=== PATIENT | female | born 1945 | race Asian ===

== ENCOUNTER 2023-04-19 17:39 | Inpatient (IN) | payer OTHER, MEDICAID ==
[~2023-04-19] VITALS: Ht 157.5 cm; Wt 59.0 kg
[~2023-04-19 17:39] MED LIST: CARB1TAB40 PO; CEPH-588 PO; DONE10TA10 PO; ROSU10TA1 PO; TEMA15CA24 PO; [UNRECOGNIZED DRUG - CODE] PO
[2023-04-19 17:42] VITALS: BP 110/61; PULSE 91; RESP 18; TEMP 96.9; O2SAT 96
[2023-04-19 20:09] LABS: BASOPHILS % (AUTO) 0.3 % (0.0-2.0); EOSINOPHILS % (AUTO) 0.2 % (0.0-4.0); HEMOGLOBIN 12.4 g/dL (12.0-16.0); LYMPHOCYTES % (AUTO) 10.9 % (20.5-51.1); MEAN CORPUSCULAR HEMOGLOBIN 32 pg (27-31); MEAN CORPUSCULAR HGB CONC 34 g/dL (33-37); MEAN CORPUSCULAR VOLUME 94.8 fL (80-94); MONOCYTES # (AUTO) 0.5 K/uL (0.8-1.0); MONOCYTES % (AUTO) 5.3 % (1.7-9.3); NEUTROPHILS # (AUTO) 7.8 K/uL (1.8-7.7); NEUTROPHILS % (AUTO) 83.3 % (42.2-75.2); PLATELET COUNT (AUTO) 225 K/uL (140-450); RED CELL DISTRIBUTION WIDTH 14.5 % (11.6-13.7); WHITE BLOOD COUNT (AUTO) 9.4 K/uL (4.8-10.8)
[2023-04-19 20:23] VITALS: O2SAT 99
[2023-04-19 20:25] LABS: ALANINE AMINOTRANSFERASE 15 U/L (12-78); ALBUMIN 3.4 g/dL (3.4-5.0); ALKALINE PHOSPHATASE 82 U/L (50-136); ANION GAP 9.7 (8-16); ASPARTATE AMINOTRANSFERASE 36 U/L (15-37); CALCIUM 8.3 mg/dL (8.5-10.1); CHLORIDE 101 mmol/L (98-107); CREATININE 0.6 mg/dL (0.6-1.3); GLUCOSE 83 mg/dL (74-106); POTASSIUM 3.7 mmol/L (3.5-5.1); SODIUM SERUM 138 mmol/L (136-145); TOTAL BILIRUBIN 0.6 mg/dL (0.0-1.0); TOTAL PROTEIN, SERUM 7.1 g/dL (6.4-8.2); UREA NITROGEN, BLOOD 16 mg/dL (7-18)
[2023-04-19] MEDS ORDERED: ZOLPIDEM 5 MG TAB PO PRN (20:50)
[2023-04-19] MEDS ORDERED: HYDROcodone/APAP 7.5/325 MG 1 TAB PO PRN (20:50)
[2023-04-19] MEDS ORDERED: POTASSIUM CHLORIDE 10 MEQ TABER PO PRN (20:50)
[2023-04-19] MEDS ORDERED: guaiFENesin DM 200/20 MG-10 ML 10 ML UDC PO PRN (20:50)
[2023-04-19] MEDS ORDERED: ONDANSETRON 4 MG/2 ML VIAL IM/IVP PRN (20:50)
[2023-04-19] MEDS ORDERED: ACETAMINOPHEN 325 MG TAB PO PRN (20:50)
[2023-04-19] MEDS ORDERED: DOCUSATE SODIUM 100 MG GELCAP PO PRN (20:50)
[2023-04-19] MEDS: NACL 0.9% 1,000 ML IV SCH (21:12)
[2023-04-19 21:35] LABS: INR 0.94 (0.8-1.2); PARTIAL THROMBOPLASTIN TIME 26.7 secs (22-35.6); PROTHROMBIN TIME 9.9 secs (10.8-13.4)
[2023-04-19 23:10] VITALS: O2SAT 99
[2023-04-20] VITALS (8 sets, daily range): BP systolic 131; BP diastolic 78; PULSE 86–87; RESP 18; TEMP 97.8; O2SAT 97–99
[2023-04-20 06:51] LABS: BASOPHILS % (AUTO) 0.6 % (0.0-2.0); EOSINOPHILS % (AUTO) 0.5 % (0.0-4.0); HEMATOCRIT 36.2 % (36-48); HEMOGLOBIN 12.1 g/dL (12.0-16.0); LYMPHOCYTES # (AUTO) 0.9 K/uL (2.5-16.5); LYMPHOCYTES % (AUTO) 23.6 % (20.5-51.1); MEAN CORPUSCULAR HEMOGLOBIN 32 pg (27-31); MEAN CORPUSCULAR HGB CONC 33 g/dL (33-37); MEAN CORPUSCULAR VOLUME 94.7 fL (80-94); MONOCYTES # (AUTO) 0.2 K/uL (0.8-1.0); MONOCYTES % (AUTO) 6.1 % (1.7-9.3); NEUTROPHILS # (AUTO) 2.7 K/uL (1.8-7.7); NEUTROPHILS % (AUTO) 69.2 % (42.2-75.2); PLATELET COUNT (AUTO) 208 K/uL (140-450); RED BLOOD CELL COUNT(AUTO) 3.83 MIL/uL (4.20-5.40); WHITE BLOOD COUNT (AUTO) 3.9 K/uL (4.8-10.8)
[2023-04-20 07:45] LABS: ALANINE AMINOTRANSFERASE 38 U/L (12-78); ALBUMIN 3.3 g/dL (3.4-5.0); ALKALINE PHOSPHATASE 84 U/L (50-136); ASPARTATE AMINOTRANSFERASE 33 U/L (15-37); CALCIUM 8.1 mg/dL (8.5-10.1); CARBON DIOXIDE 28.1 mmol/L (21-32); CHLORIDE 102 mmol/L (98-107); CREATININE 0.6 mg/dL (0.6-1.3); GLUCOSE 90 mg/dL (74-106); POTASSIUM 4.1 mmol/L (3.5-5.1); SODIUM SERUM 138 mmol/L (136-145); TOTAL BILIRUBIN 0.5 mg/dL (0.0-1.0); TOTAL PROTEIN, SERUM 7.2 g/dL (6.4-8.2); UREA NITROGEN, BLOOD 13 mg/dL (7-18)
[2023-04-20] MEDS: PANTOPRAZOLE 40 MG TABEC PO SCH (09:00)
[2023-04-20] MEDS: NACL 0.9% 1,000 ML IV SCH (12:46)
[2023-04-20] MEDS: DEXT 5% /NACL 0.9% 1,000 ML IV SCH (23:30)
[2023-04-21] VITALS: BP 111/57; PULSE 68; PULSE 75; RESP 18; TEMP 98.5; O2SAT 100
[2023-04-21 01:29] VITALS: PULSE 69
[2023-04-21] MEDS: DEXT 5% /NACL 0.9% 1,000 ML IV SCH ×2 (03:14→15:08)
[2023-04-21 04:00] VITALS: BP 130/69; PULSE 70; RESP 18; TEMP 98.7; O2SAT 100
[2023-04-21] MEDS: NACL 0.9% 1,000 ML IV SCH (06:10)
[2023-04-21 06:42] LABS: BASOPHILS % (AUTO) 0.4 % (0.0-2.0); EOSINOPHILS % (AUTO) 0.4 % (0.0-4.0); HEMATOCRIT 35.7 % (36-48); HEMOGLOBIN 12.1 g/dL (12.0-16.0); LYMPHOCYTES # (AUTO) 0.8 K/uL (2.5-16.5); LYMPHOCYTES % (AUTO) 21.4 % (20.5-51.1); MEAN CORPUSCULAR HEMOGLOBIN 32 pg (27-31); MEAN CORPUSCULAR HGB CONC 34 g/dL (33-37); MEAN CORPUSCULAR VOLUME 94.8 fL (80-94); MONOCYTES # (AUTO) 0.3 K/uL (0.8-1.0); NEUTROPHILS # (AUTO) 2.7 K/uL (1.8-7.7); NEUTROPHILS % (AUTO) 70.8 % (42.2-75.2); PLATELET COUNT (AUTO) 210 K/uL (140-450); RED BLOOD CELL COUNT(AUTO) 3.77 MIL/uL (4.20-5.40); RED CELL DISTRIBUTION WIDTH 14.1 % (11.6-13.7); WHITE BLOOD COUNT (AUTO) 3.9 K/uL (4.8-10.8)
[2023-04-21 06:49] LABS: ALANINE AMINOTRANSFERASE 34 U/L (12-78); ALBUMIN 3.3 g/dL (3.4-5.0); ALKALINE PHOSPHATASE 80 U/L (50-136); ANION GAP 12.6 (8-16); ASPARTATE AMINOTRANSFERASE 25 U/L (15-37); CALCIUM 8.1 mg/dL (8.5-10.1); CARBON DIOXIDE 27.9 mmol/L (21-32); CHLORIDE 102 mmol/L (98-107); CREATININE 0.6 mg/dL (0.6-1.3); GLUCOSE 67 mg/dL (74-106); POTASSIUM 3.5 mmol/L (3.5-5.1); SODIUM SERUM 139 mmol/L (136-145); TOTAL BILIRUBIN 0.5 mg/dL (0.0-1.0); UREA NITROGEN, BLOOD 15 mg/dL (7-18)
[2023-04-21 08:00] VITALS: BP 121/55; PULSE 75; PULSE 81; RESP 19; TEMP 97.7; O2SAT 100
[2023-04-21] MEDS: PANTOPRAZOLE 40 MG TABEC PO SCH (09:00)
[2023-04-21] MEDS ORDERED: fentaNYL citrate 0.05 MG/ML VIAL ONE (14:18)
[2023-04-21] MEDS ORDERED: MIDAZOLAM 2 MG/2 ML VIAL ONE (14:18)
[2023-04-21] MEDS ORDERED: ceFAZolin 1,000 MG VIAL ONE (14:57)
[2023-04-21] MEDS ORDERED: LACTULOSE 20 GM/30 ML UDC PO PRN (15:05)
[2023-04-21] MEDS ORDERED: MIDAZOLAM 2 MG/2 ML VIAL IVP ONE (15:35)
[2023-04-21] MEDS ORDERED: fentaNYL citrate 0.05 MG/ML VIAL IVP ONE (15:35)
[2023-04-21 16:00] VITALS: BP 130/58; PULSE 88; RESP 19; TEMP 97.9; O2SAT 99
[2023-04-21 20:00] VITALS: BP 132/66; PULSE 88; RESP 18; TEMP 97.3; O2SAT 96
[2023-04-21] MEDS: clonazePAM 0.5 MG TAB PO SCH (20:35)
[2023-04-22 04:00] VITALS: BP 120/65; PULSE 75; RESP 18; TEMP 96.6; O2SAT 98
[2023-04-22] MEDS: DEXT 5% / NACL 0.9% 500 ML IV SCH ×2 (04:00→05:30)
[2023-04-22 06:49] LABS: ALANINE AMINOTRANSFERASE 27 U/L (12-78); ALBUMIN 3.1 g/dL (3.4-5.0); ALKALINE PHOSPHATASE 79 U/L (50-136); ANION GAP 7.4 (8-16); ASPARTATE AMINOTRANSFERASE 22 U/L (15-37); CALCIUM 8.4 mg/dL (8.5-10.1); CARBON DIOXIDE 31.1 mmol/L (21-32); CHLORIDE 102 mmol/L (98-107); CREATININE 0.6 mg/dL (0.6-1.3); GLUCOSE 159 mg/dL (74-106); POTASSIUM 3.5 mmol/L (3.5-5.1); SODIUM SERUM 137 mmol/L (136-145); TOTAL BILIRUBIN 0.5 mg/dL (0.0-1.0); TOTAL PROTEIN, SERUM 6.9 g/dL (6.4-8.2); UREA NITROGEN, BLOOD 11 mg/dL (7-18)
[2023-04-22 07:07] LABS: BASOPHILS % (AUTO) 0.1 % (0.0-2.0); EOSINOPHILS % (AUTO) 0.1 % (0.0-4.0); HEMATOCRIT 36.9 % (36-48); HEMOGLOBIN 12.4 g/dL (12.0-16.0); LYMPHOCYTES # (AUTO) 0.8 K/uL (2.5-16.5); LYMPHOCYTES % (AUTO) 9.8 % (20.5-51.1); MEAN CORPUSCULAR HEMOGLOBIN 32 pg (27-31); MEAN CORPUSCULAR HGB CONC 34 g/dL (33-37); MEAN CORPUSCULAR VOLUME 94.9 fL (80-94); MONOCYTES # (AUTO) 0.3 K/uL (0.8-1.0); MONOCYTES % (AUTO) 3.7 % (1.7-9.3); NEUTROPHILS # (AUTO) 6.8 K/uL (1.8-7.7); NEUTROPHILS % (AUTO) 86.3 % (42.2-75.2); PLATELET COUNT (AUTO) 215 K/uL (140-450); RED BLOOD CELL COUNT(AUTO) 3.89 MIL/uL (4.20-5.40); RED CELL DISTRIBUTION WIDTH 13.8 % (11.6-13.7); WHITE BLOOD COUNT (AUTO) 7.9 K/uL (4.8-10.8)
[2023-04-22 07:56] VITALS: PULSE 86
[2023-04-22 08:24] VITALS: BP 126/63; PULSE 80; RESP 18; TEMP 97.1; O2SAT 95
[2023-04-22] MEDS: clonazePAM 0.5 MG TAB PO SCH ×2 (08:27→08:41)
[2023-04-22 09:09] VITALS: PULSE 80; RESP 18; O2SAT 95
[2023-04-22 12:42] VITALS: BP 118/63; PULSE 80; RESP 18; TEMP 97.1
[2023-04-22 16:56] VITALS: BP 121/61; PULSE 80; RESP 18; TEMP 97.6; O2SAT 95
[2023-04-23 06:08] LABS: HEPATITIS A ANTIBODY IGM Negative (Negative); HEPATITIS B CORE AB TOTAL Negative (Negative); HEPATITIS B CORE, IGM Negative (Negative); HEPATITIS B SURFACE ANTIBODY Reactive (.); HEPATITIS B SURFACE ANTIGEN Negative (Negative); HEPATITIS C VIRUS ANTIBODY Non Reactive (Non Reactive)
[2023-04-23 16:18] LABS: HEPATITIS A ANTIBODY TOTAL Positive (Negative)
== END 2023-04-22 16:55 | DRG 392 ==
LOC: MED 17:39 → MTU 21:09
PROVIDERS: ADMIT Student in an Organized Health Care Education/Training Program; ATTEND Student in an Organized Health Care Education/Training Program
PROC: 0DH68UZ Insertion of Feeding Device into Stomach, Via Natural or Artificial Opening Endoscopic (ICD-10-PCS; principal; 2023-04-21 14:30)
DX: R13.10 Dysphagia, unspecified (principal); E44.0 Moderate protein-calorie malnutrition; D72.819 Decreased white blood cell count, unspecified; K21.9 Gastro-esophageal reflux disease without esophagitis; E78.5 Hyperlipidemia, unspecified; I10 Essential (primary) hypertension; R62.7 Adult failure to thrive; Z68.23 Body mass index [BMI] 23.0-23.9, adult; G20 Parkinson's disease; F03.90 Unspecified dementia, unspecified severity, without behavioral disturbance, psychotic disturbance, mood disturbance, and anxiety
CPT/HCPCS: 36415; 71045; 80053; 83880; 84484; 85025; 85610; 85730; 86704; 86706; 86708; 86709; 86803; 87081; 87340; 92526; 93005; 99285; J0690; J2250; J3010; J7030; J7060; Q0092